=== PATIENT | male | born 1975 | race Caucasian/White ===

== ENCOUNTER 2018-06-23 13:16 | Day surgery (SDC) | payer OTHER ==
[~2018-06-23 13:16] MED LIST: LIDOCAINE 2% (SDV) 5 ML INJ; SEVOFLURANE 15 MIN
[2018-06-23 14:07] LABS: ADD MAN DIFF? NO
[2018-06-23 14:09] LABS: BASOPHILS % 0.5 % (0.0-2.0); EOSINOPHILS # 0.2 10^3/ul (0.0-0.5); HEMOGLOBIN 13.2 g/dl (14.0-18.0); LYMPHOCYTES # 1.1 10^3/ul (0.8-2.9); LYMPHOCYTES % 17.2 % (15.0-51.0); MEAN CORPUSCULAR HEMOGLOBIN 27.6 pg (29.0-33.0); MEAN CORPUSCULAR VOLUME 83.5 fl (82.0-101.0); MEAN PLATELET VOLUME 10.3 fl (7.4-10.4); MONOCYTE # 0.4 10^3/ul (0.3-0.9); MONOCYTES % 6.9 % (0.0-11.0); NEUTROPHIL # 4.4 10^3/ul (1.6-7.5); NEUTROPHILS % 72.1 % (39.0-77.0); PLATELET COUNT 261 10^3/UL (140-415); RED BLOOD COUNT 4.79 10^6/ul (4.70-6.10); RED CELL DISTRIBUTION WIDTH 13.3 % (11.5-14.5)
[2018-06-23 14:09] LABS: WHITE BLOOD COUNT 6.1 10^3/ul (4.8-10.8)
[2018-06-23 14:31] LABS: ALANINE AMINOTRANSFERASE 95 IU/L (13-69); ALBUMIN 4.5 g/dl (3.3-4.9); ALBUMIN/GLOBULIN RATIO 1.55; ANION GAP 12 (5-13); ASPARTATE AMINO TRANSFERASE 51 IU/L (15-46); BILIRUBIN,INDIRECT 0.2 mg/dl (0-1.1); BILIRUBIN,TOTAL 0.2 mg/dl (0.2-1.3); CARBON DIOXIDE 26 mmol/L (21-31); CHLORIDE 101 mmol/L (97-110); Estimated GFR > 60 mL/min (>60); GLUCOSE 100 mg/dl (70-220); POTASSIUM 3.5 mmol/L (3.5-5.1); SODIUM 139 mmol/L (135-144); TOTAL PROTEIN 7.4 g/dl (6.1-8.1)
[2018-06-23 14:32] LABS: ALKALINE PHOSPHATASE 66 IU/L (42-121); CALCIUM 9.5 mg/dl (8.4-10.2)
[2018-06-23 14:33] LABS: CREATININE 0.58 mg/dl (0.61-1.24)
[2018-06-23 14:49] LABS: INR 0.93; PARTIAL THROMBOPLASTIN TIME 26.7 Sec (23.0-35.0); PROTIME 12.6 Sec (11.9-14.9)
[2018-06-23 14:51] LABS: BLOOD UREA NITROGEN 14 mg/dl (7-20)
[2018-06-23] MEDS ORDERED: ONDANSETRON 4 MG INJ IV (16:00)
[2018-06-23] MEDS ORDERED: DIPHENHYDRAMINE 50 MG INJ IV (16:00)
[2018-06-23] MEDS ORDERED: PROCHLORPERAZINE 10 MG INJ IV (16:00)
[2018-06-23] MEDS ORDERED: LABETALOL HCL 20MG INJ IV (16:00)
[2018-06-23] MEDS ORDERED: hydrALAzine 20 MG INJ IV (16:00)
[2018-06-23] MEDS ORDERED: MEPERIDINE 25 MG INJ IV (16:00)
[2018-06-23] MEDS ORDERED: MIDAZOLAM 1 MG/ML 2 ML INJ (16:07)
[2018-06-23] MEDS ORDERED: ROPIVACAINE 0.5 % 30 ML VIAL (16:10)
[2018-06-23] MEDS ORDERED: FENTAnyl 50 MCG/ML VIAL (16:11)
[2018-06-23] MEDS ORDERED: CEFAZOLIN 1 GM INJ (16:39)
[2018-06-23] MEDS: BUPIVACAINE 0.5% (SDV) 30 ML INJ (16:45)
[2018-06-23] MEDS: LIDOCAINE 1% (MPF) 30 ML INJ (16:46)
[2018-06-23] MEDS ORDERED: PROPOFOL 40 ML (16:48)
[2018-06-23] MEDS ORDERED: HYDROmorphONE 2 MG/ML SYG (16:48)
[2018-06-23] MEDS ORDERED: DEXAMETHASONE 4 MG/ML 5 ML INJ (16:52)
[2018-06-23] MEDS ORDERED: FAMOTIDINE 20 MG INJ (16:52)
[2018-06-23] MEDS ORDERED: ONDANSETRON 4 MG INJ (16:52)
[2018-06-23] MEDS ORDERED: KETOROLAC 30 MG INJ (17:33)
[2018-06-23] MEDS ORDERED: HYDROmorphONE 1 MG/5 ML IV SYRINGE IV ×2 (18:00)
[2018-06-23] MEDS ORDERED: OXYCODONE/ACETAMINOPHEN (5/325) TAB PO (18:00)
[2018-06-23] MEDS: FENTAnyl 50 MCG/ML VIAL IV (18:15)
[2018-06-23] MEDS: HYDROmorphONE 1 MG/5 ML IV SYRINGE IV (18:19)
[2018-06-23] MEDS: OXYCODONE/ACETAMINOPHEN (5/325) TAB PO (18:26)
== END 2018-06-23 19:40 | disposition home or self-care (01) ==
LOC: SDS 13:16
DX: G56.01 Carpal tunnel syndrome, right upper limb (principal); G56.21 Lesion of ulnar nerve, right upper limb; M77.01 Medial epicondylitis, right elbow; I10 Essential (primary) hypertension; E78.5 Hyperlipidemia, unspecified; Z87.891 Personal history of nicotine dependence
CPT/HCPCS: 24359; 80053; 85025; 85610; 85730; 93005